=== PATIENT | male | born 1975 | race Caucasian/White ===

== ENCOUNTER 2021-01-17 03:01 | Emergency (ER) | payer BC ==
--- OUTSIDE RECORDS SUMMARY | 2021-01-17 03:04 | XMS REPORT | Continuity of Care Document ---
:1975 Author Organization [facility] t Address [address] [place] [address] Dr. Bustill[address] [place] [address] Care Team Providers Name Role Phone Lab, Charly Pob I Attending Clinician Unavailable Problems This patient has no known problems. Allergies, Adverse Reactions, Alerts This patient has no known allergies or adverse reactions. Medications This patient has no known medications. Procedures This patient has no known procedures. Encounters Start End Encounter Admission Attending Care Care Encounter Source Date/Time Date/Time Type Type Clinicians Facility Department ID 2020-04-06 2020-04-06 Laboratory Lab, [facility] [id number] 14:01:10 14:21:10 Only Fam Pob I [facility] [id number] [place] [id number] Carlos [id number] [address] Results This patient has no known results.
--- NOTE | 2021-01-17 03:38 | EDPHYS ---
Physician Documentation [facility] Name: Derek Storey Age: 45 yrs Sex: Male : 1975 Arrival Date: 01/17/2021 Time: 03:05 Bed 13 Private MD: ED Physician Be Mcintosh HPI: 01/17 03:32 This 45 yrs old Male presents to ER via Ambulatory with complaints of bar Laceration - RIGHT KNEE. 03:32 The patient presents with an injury, pain, that is acute. The complaints affect the bar right knee. Context: The problem was sustained at home. Onset: The symptoms/episode began/occurred just prior to arrival. Modifying factors: The symptoms are alleviated by nothing. Associated signs and symptoms: The patient has no apparent associated signs or symptoms. Treatment prior to arrival includes: no previous treatment. Severity of symptoms: At their worst the symptoms were mild, in the emergency department the symptoms are unchanged. The patient has not experienced similar symptoms in the past. Historical: - Allergies: 03:17 PENICILLINS; bb - Home Meds: 03:17 None [Active]; bb - PMHx: 03:17 None; bb - PSHx: 03:17 hernia; bb - Immunization history:: Adult Immunizations up to date, Last tetanus immunization: unknown. - Social history:: Smoking status: Patient denies any tobacco usage or history of. - Family history:: not pertinent. ROS: 03:32 Constitutional: Negative for fever, chills, and weight loss, Eyes: Negative for injury, bar pain, redness, and discharge, ENT: Negative for injury, pain, and discharge, Neck: Negative for injury, pain, and swelling, Cardiovascular: Negative for chest pain, palpitations, and edema, Respiratory: Negative for shortness of breath, cough, wheezing, and pleuritic chest pain, Abdomen/GI: Negative for abdominal pain, nausea, vomiting, diarrhea, and constipation, Back: Negative for injury and pain, : Negative for injury, bleeding, discharge, and swelling, Skin: Negative for injury, rash, and discoloration, Neuro: Negative for headache, weakness, numbness, tingling, and seizure, Psych: Negative for depression, anxiety, suicide ideation, homicidal ideation, and hallucinations, Allergy/Immunology: Negative for hives, rash, and allergies, Endocrine: Negative for neck swelling, polydipsia, polyuria, polyphagia, and marked weight changes, Hematologic/Lymphatic: Negative for swollen nodes, abnormal bleeding, and unusual bruising. 03:32 MS/extremity: Positive for laceration, tenderness, of the right knee. Exam: 03:32 Constitutional: This is a well developed, well nourished patient who is awake, alert, bar and in no acute distress. Head/Face: Normocephalic, atraumatic. Eyes: Pupils equal round and reactive to light, extra-ocular motions intact. Lids and lashes normal. Conjunctiva and sclera are non-icteric and not injected. Cornea within normal limits. Periorbital areas with no swelling, redness, or edema. ENT: Nares patent. No nasal discharge, no septal abnormalities noted. Tympanic membranes are normal and external auditory canals are clear. Oropharynx with no redness, swelling, or masses, exudates, or evidence of obstruction, uvula midline. Mucous membranes moist. Neck: Trachea midline, no thyromegaly or masses palpated, and no cervical lymphadenopathy. Supple, full range of motion without nuchal rigidity, or vertebral point tenderness. No Meningismus. Chest/axilla: Normal chest wall appearance and motion. Nontender with no deformity. No lesions are appreciated. Cardiovascular: Regular rate and rhythm with a normal S1 and S2. No gallops, murmurs, or rubs. Normal PMI, no JVD. No pulse deficits. Respiratory: Lungs have equal breath sounds bilaterally, clear to auscultation and percussion. No rales, rhonchi or wheezes noted. No increased work of breathing, no retractions or nasal flaring. Abdomen/GI: Soft, non-tender, with normal bowel sounds. No distension or tympany. No guarding or rebound. No evidence of tenderness throughout. Back: No spinal tenderness. No costovertebral tenderness. Full range of motion. Male : Normal genitalia with no discharge or lesions. Skin: Warm, dry with normal turgor. Normal color with no rashes, no lesions, and no evidence of cellulitis. Neuro: Awake and alert, GCS 15, oriented to person, place, time, and situation. Cranial nerves II-XII grossly intact. Motor strength 5/5 in all extremities. Sensory grossly intact. Cerebellar exam normal. Normal gait. Psych: Awake, alert, with orientation to person, place and time. Behavior, mood, and affect are within normal limits. 03:32 Musculoskeletal/extremity: ROM: full active range of motion, full passive range of motion, Circulation is intact in all extremities. Sensation intact. Compartment Syndrome exam of affected extremity: is normal. DVT Exam: no swelling, negative Homans' sign noted on exam, no appreciated bluish discoloration, no erythema, no increased warmth, pain, tenderness. Vital Signs: 03:15 BP 126 / 95; Pulse 66; Resp 16 S; Temp 98.5(O); Pulse Ox 99% on R/A; Weight 102.06 kg bb (R); Height 6 ft. 1 in. (185.42 cm) (R); Pain 0/10; 04:03 BP 136 / 93; Pulse 67; Resp 16 S; Pulse Ox 96% on R/A; bb 03:15 Body Mass Index 29.68 (102.06 kg, 185.42 cm) bb Laceration: 03:32 Wound Repair of 2cm ( 0.8in ) subcutaneous laceration to right knee. Linear shaped.. bar Distal neuro/vascular/tendon intact. Anesthesia: Local anesthetic administered with 5 mls of 1% lidocaine w/ Epi. Wound prep: Simple cleansing by me. Skin closed with 2 1-0 Prolene using vertical mattress sutures and sterile technique. Dressed with Neosporin. Patient tolerated well. MDM: 03:12 Patient medically screened. [facility] 03:35 Differential diagnosis: contusion, abrasion, tendonitis. Data reviewed: vital signs, [facility] nurses notes. Data interpreted: admitting office escort: not applicable for this patient encounter. rate is 66 beats/min, rhythm is regular, Pulse oximetry: on room air is 99 %. Counseling: I had a detailed discussion with the patient and/or guardian regarding: the historical points, exam findings, and any diagnostic results supporting the discharge/admit diagnosis, the need for outpatient follow up, for definitive care, a family practitioner. 01/17 03:29 Order name: Dressing - Wound; Complete Time: 03:29 01/17 03:29 Order name: Gloves, Sterile; Complete Time: 03:01/17 03:29 Order name: Setup Suture Tray; Complete Time: 03:01/17 03:30 Order name: Gloves, Sterile; Complete Time: 03:31 bar Administered Medications: 03:29 Drug: Tetanus-Diphtheria Toxoid Adult 0.5 ml {Collection Technician: [employer]. Exp: bb 09/15/2022. Lot #: [id number]. } Route: IM; Site: right deltoid; 03:48 Follow up: Response: No adverse reaction bb 03:31 CANCELLED (Duplicate Order): Lidocaine-Epinephrine -1%: (1:100,000) 5 ml 20 ml bb Infiltration once; to bedside 03:32 CANCELLED (Duplicate Order): Tetanus-Diphtheria Toxoid Adult 0.5 ml IM once bb 03:40 Drug: Lidocaine-Epinephrine -1%: (1:100,000) 1 ml {Note: administered by Dr Mcintosh to bb affected area.} Volume: 20 ml; Route: Infiltration; 03:48 Follow up: Response: No adverse reaction bb Disposition Summary: 01/17/21 03:37 Discharge Ordered Location: Home [facility] Problem: new bar Symptoms: have improved bar Condition: Stable bar Diagnosis - Laceration without foreign body, right knee bar Followup: bar - With: Private Physician - When: 1 week - Reason: Recheck today's complaints, Continuance of care, Re-evaluation by your physician Discharge Instructions: - Discharge Summary Sheet bar - Laceration Care, Adult bar - Laceration Care, Adult, [id number] [facility] Forms: - Medication Reconciliation Form [facility] - Thank You Letter [facility] - Antibiotic Education bar - Prescription Opioid Use [facility] Prescriptions: - Ibuprofen 600 mg Oral Tablet - take 1 tablet by ORAL route every 6 hours As needed take with food; 20 tablet; [facility] Refills: 0, Product Selection Permitted - Bactrim DS 800-160 mg Oral Tablet - take 1 tablet by ORAL route every 12 hours for 7 days; 14 tablet; Refills: 0, [facility] Product Selection Permitted Signatures: Be Mcintosh MD MD cha Ballard, Brenda, RN RN bb Corrections: (The following items were deleted from the chart) 03:31 03:30 Lidocaine-Epinephrine -1%: (1:100,000) 5 ml 20 ml Infiltration once; to bedside bb ordered. [facility] 03:31 03:30 Dressing - Wound ordered. [facility] 03:31 03:30 Sutures, Prolene ordered. [facility] 03:32 03:30 Tetanus-Diphtheria Toxoid Adult 0.5 ml IM once ordered. bar mccabe 03:32 03:30 Setup Suture Tray ordered. bar mccabe
--- NOTE | 2021-01-17 03:38 | ER ---
Nurse's Notes [facility] Name: Derek Storey Age: 45 yrs Sex: Male : 1975 Arrival Date: 01/17/2021 Time: 03:05 Bed 13 Private MD: Diagnosis: Laceration without foreign body, right knee Presentation: 01/17 03:15 Chief complaint: Patient states: he cut his right knee with a filet knife when he was bb cutting fish up yesterday afternoon and he has not been able to get it to stop bleeding. Coronavirus screen: At this time, the client does not indicate any symptoms associated with coronavirus-19. Ebola Screen: No symptoms or risks identified at this time. Complicating Factors: There are no complicating factors for this patient. Initial Sepsis Screen: Does the patient meet any 2 criteria? No. Patient's initial sepsis screen is negative. Does the patient have a suspected source of infection? No. Patient's initial sepsis screen is negative. Risk Assessment: Do you want to hurt yourself or someone else? Patient reports no desire to harm self or others. Onset of symptoms was January 16, 2021. 03:15 Method Of Arrival: Ambulatory bb 03:15 Acuity: TAMANNA 4 bb Historical: - Allergies: 03:17 PENICILLINS; bb - Home Meds: 03:17 None [Active]; bb - PMHx: 03:17 None; bb - PSHx: 03:17 hernia; bb - Immunization history:: Adult Immunizations up to date, Last tetanus immunization: unknown. - Social history:: Smoking status: Patient denies any tobacco usage or history of. - Family history:: not pertinent. Screenin:18 Abuse screen: Denies threats or abuse. Nutritional screening: No deficits noted. bb Tuberculosis screening: No symptoms or risk factors identified. Fall Risk None identified. Assessment: 03:18 General: Appears in no apparent distress. Behavior is calm, cooperative. Pain: Denies bb pain. Neuro: Level of Consciousness is awake, alert, obeys commands, Oriented to person, place, time, situation. Cardiovascular: Capillary refill < 3 seconds Patient's skin is warm and dry. Respiratory: Respiratory effort is even, unlabored. GI: No signs and/or symptoms were reported involving the gastrointestinal system. Derm: Skin is pink, warm \T\ dry. Wound noted right knee. Musculoskeletal: Circulation, motion, and sensation intact. Injury Description: Laceration sustained to right knee is clean, 0.5 to 2.5 cm long, not bleeding, was sustained 12-24 hours ago. is bleeding no active bleeding noted. 04:03 Reassessment: Patient is alert, oriented x 3, equal unlabored respirations, skin bb warm/dry/pink. suture line intact, pt verbalized understanding of and agrees to plan of care discharge instructions given pt ambulated with steady gait to exit. Vital Signs: 03:15 BP 126 / 95; Pulse 66; Resp 16 S; Temp 98.5(O); Pulse Ox 99% on R/A; Weight 102.06 kg bb (R); Height 6 ft. 1 in. (185.42 cm) (R); Pain 0/10; 04:03 BP 136 / 93; Pulse 67; Resp 16 S; Pulse Ox 96% on R/A; bb 03:15 Body Mass Index 29.68 (102.06 kg, 185.42 cm) bb ED Course: 03:05 Patient arrived in ED. wm 03:12 Be Mcintosh MD is Attending Physician. bar 03:15 Candelaria Knox RN is Primary Nurse. bb 03:17 Triage completed. bb 03:17 Arm band placed on Patient placed in an exam room, on a stretcher, on pulse oximetry. bb 03:18 Patient has correct armband on for positive identification. Bed in low position. Call bb light in reach. Side rails up X 1. Pulse ox on. NIBP on. 03:48 Assist provider with laceration repair on right knee that was 2.5 cm. or less using bb sutures. Set up tray. Performed by Be Mcintosh MD Dressed with band aid, Neosporin, Patient tolerated well. Patient did not have IV access during this emergency room visit. 03:50 Dressings: neosporin, 2x2 and tegaderm applied to area. bb Administered Medications: 03:29 Drug: Tetanus-Diphtheria Toxoid Adult 0.5 ml {Public Health Outreach Worker: [employer]. Exp: bb 09/15/2022. Lot #: [id number]. } Route: IM; Site: right deltoid; 03:48 Follow up: Response: No adverse reaction bb 03:31 CANCELLED (Duplicate Order): Lidocaine-Epinephrine -1%: (1:100,000) 5 ml 20 ml bb Infiltration once; to bedside 03:32 CANCELLED (Duplicate Order): Tetanus-Diphtheria Toxoid Adult 0.5 ml IM once bb 03:40 Drug: Lidocaine-Epinephrine -1%: (1:100,000) 1 ml {Note: administered by Dr Mcintosh to bb affected area.} Volume: 20 ml; Route: Infiltration; 03:48 Follow up: Response: No adverse reaction bb Outcome: 03:37 Discharge ordered by . bar 04:04 Discharged to home ambulatory. bb 04:04 Condition: stable 04:04 Discharge instructions given to patient, Instructed on discharge instructions, follow up and referral plans. medication usage, wound care, Demonstrated understanding of instructions, follow-up care, medications, wound care, Prescriptions given X 2. 04:05 Patient left the ED. bb Signatures: Be Mcintosh MD MD cha Ballard, Brenda, RN RN Flores Breaux
[2021-01-17] MEDS ORDERED: TETANUS & DIPHTHERIA TOX,ADULT 0.5 ML VIAL ONE (03:43)
[2021-01-17] MEDS ORDERED: LIDOCAINE 1% W/EPI 1:100,000 MDV 20 ML VIAL ONE (03:46)
== END 2021-01-17 04:05 | disposition home or self-care (01) ==
LOC: ER 03:01
PROC: 0JQN0ZZ Repair Right Lower Leg Subcutaneous Tissue and Fascia, Open Approach (ICD-10-PCS; principal; 2021-01-17)
DX: S81.011A Laceration without foreign body, right knee, initial encounter (principal); Z23 Encounter for immunization; Z88.0 Allergy status to penicillin
CPT/HCPCS: 90471; 90714; 99284